=== PATIENT | male | born 1970 ===

== ENCOUNTER → 2023-10-15 09:45 | Outpatient (ROUT) | payer OTHER, SELFPAY ==
[2023-10-15 21:16] LABS: Alanine Aminotransferase 32 IU/L (<50)
[2023-10-15 21:27] LABS: Add Manual Diff / Slide Review NO; Basophils Absolute Auto 0 /uL (0-100); Basophils Percent Auto 0.4 % (0-2); Eosinophils Absolute Auto 400 /uL (0-450); Eosinophils Percent Auto 5.2 % (2-4); Hematocrit 45.7 % (41-53); Hemoglobin 15.1 g/dL (13.5-17.5); Lymphocytes Absolute Auto 2400 /uL (1100-4500); Lymphocytes Percent Auto 33.6 % (25-40); Mean Corpuscular HGB Conc 33.1 % (30-36); Mean Corpuscular Hemoglobin 29.8 PG (26-34); Mean Corpuscular Volume 90.1 fL (80-100); Monocytes Absolute Auto 700 /uL (0-900); Monocytes Percent Auto 9.6 % (3-14); Neutrophils Absolute Auto 3600 /uL (1500-7000); Neutrophils Percent Auto 51.2 % (50-75); Platelet Count 213 X10^3/uL (150-400); Red Blood Cell Count 5.08 X10^6/uL (4.5-5.9); Red Cell Distribution Width 13.2 % (11.6-14.8)
[2023-10-15 21:59] LABS: Erythrocyte Sedimentation Rate 8 MM/HR (0-15)
== END ==
PROVIDERS: Visit Provider Internal Medicine Infectious Disease
DX: M14.672 Charcot's joint, left ankle and foot (principal); T81.40XA Infection following a procedure, unspecified, initial encounter; M86.272 Subacute osteomyelitis, left ankle and foot
CPT/HCPCS: 84460; 85025; 85651

== ENCOUNTER → 2023-10-29 18:38 | Outpatient (ROUT) | payer OTHER, SELFPAY ==
[2023-10-29 19:18] LABS: Erythrocyte Sedimentation Rate 2 MM/HR (0-15)
[2023-10-29 19:20] LABS: Add Manual Diff / Slide Review NO; Basophils Absolute Auto 0 /uL (0-100); Basophils Percent Auto 0.4 % (0-2); Eosinophils Absolute Auto 400 /uL (0-450); Eosinophils Percent Auto 6.3 % (2-4); Hematocrit 45.3 % (41-53); Hemoglobin 15.1 g/dL (13.5-17.5); Lymphocytes Absolute Auto 1800 /uL (1100-4500); Lymphocytes Percent Auto 32.6 % (25-40); Mean Corpuscular HGB Conc 33.4 % (30-36); Mean Corpuscular Volume 89.9 fL (80-100); Monocytes Absolute Auto 800 /uL (0-900); Monocytes Percent Auto 13.8 % (3-14); Neutrophils Absolute Auto 2600 /uL (1500-7000); Neutrophils Percent Auto 46.9 % (50-75); Platelet Count 143 X10^3/uL (150-400); Red Blood Cell Count 5.04 X10^6/uL (4.5-5.9); White Blood Cell Count 5.5 X10^3/uL (4.5-11.0)
[2023-10-29 19:23] LABS: Alanine Aminotransferase 42 IU/L (<50)
[2023-10-30 16:25] LABS: Estimated Glomerular Filt Rate > 60 mL/min (>60)
== END ==
PROVIDERS: Visit Provider Internal Medicine Infectious Disease
DX: M14.672 Charcot's joint, left ankle and foot (principal); T81.40XA Infection following a procedure, unspecified, initial encounter; M86.272 Subacute osteomyelitis, left ankle and foot
CPT/HCPCS: 82565; 84460; 85025; 85651